=== PATIENT | male | born 1975 | race Hispanic/Latino ===

== ENCOUNTER 2019-10-02 16:50 | Emergency (ER) | payer OTHER ==
--- NOTE | 2019-10-02 17:19 | Event Note ---
ED Screening Note Date of service: 10/02/19 (n) Time: 17:16 ED Screening Note: 44 yo male presents s/p head injury 4 days ago hit his head on the wall, today blurtry vision, pain and dizziness This initial assessment/diagnostic orders/clinical plan/treatment(s) is/are subject to change based on patients health status, clinical progression and re- assessment by fellow clinical providers in the ED. Further treatment and workup at subsequent clinical providers discretion. Patient/guardian urged not to elope from the ED as their condition may be serious if not clinically assessed and managed. Initial orders include: CT scan
--- NOTE | 2019-10-02 18:15 | Cat Scan Report ---
CT head/brain wo con INDICATION / CLINICAL INFORMATION: 44 years Male; head injury/fall. TECHNIQUE: Routine CT head without contrast. All CT scans at this location are performed using CT dos e reduction for ALARA by means of automated exposure control. COMPARISON: None. FINDINGS: BRAIN / INTRACRANIAL CONTENTS: The brain demonstrates appropriate attenuation. The ventricular system is within normal limits in size and configuration. There is no CT evidence of acute intracranial hem orrhage or significant mass effect. ORBITS: No significant abnormality of visualized orbits. SINUSES / MASTOIDS: There is mild mucosal thickening within the visualized ethmoid air cells. CRANIOCERVICAL JUNCTION: No significant abnormality. ADDITIONAL FINDINGS: None. IMPRESSION: 1. There is no CT evidence of acute intracranial process. Signer Name: Manuel Whitney MD Signed: 10/02/2019 6:10 PM Workstation Name: [id number]
--- NOTE | 2019-10-02 18:46 | Emergency Department Report ---
ED General Adult HPI - General Chief complaint: Head Injury Stated complaint: HEAD INJURY Time Seen by Provider: 10/02/19 18:45 Source: patient, RN notes reviewed Mode of arrival: Ambulatory Limitations: No Limitations - History of Present Illness Initial comments: This is a pleasant 44-year-old gentleman. This patient is not known to this provider previously. The patient lives in [place]. He does not have a local primary care doctor. The patient was in his usual state of health 3 days ago, when he slipped and had a mechanical fall, mostly landing on the superior aspect of his back, but also hitting his head. Prior to the fall, he was not having any medical complaints or symptoms. After the fall, he developed a mild headache. He reports that since then, he is felt unwell, mild headache, and dizzy. He is not lost consciousness. He denies vomiting, diaphoresis. He denies midline neck pain. He denies chest pain and abdominal pain and shortness of breath. He describes his dizziness as a sensation of lightheadedness. There is no sensation of heart racing and/or palpitations. He makes no complaints or admission of DVT and/or pulmonary embolism risk factors. -: Sudden Location: head Quality: aching Consistency: intermittent Improves with: none Worsens with: none - Related Data Allergies Allergy/AdvReac Type Severity Reaction Status Date / Time No Known Allergies Allergy Unverified 10/02/19 17:01 ED Review of Systems ROS: Stated complaint: HEAD INJURY Other details as noted in HPI Constitutional: denies: fever Eyes: denies: eye discharge ENT: denies: congestion Cardiovascular: denies: syncope Gastrointestinal: denies: abdominal pain, vomiting Musculoskeletal: myalgia Neurological: weakness. denies: abnormal gait, vertigo Hematological/Lymphatic: denies: easy bleeding ED Past Medical Hx - Past Medical History Previous Medical History?: No - Surgical History Past Surgical History?: No ED Physical Exam - General Limitations: No Limitations General appearance: alert, in no apparent distress - Head Head exam: Present: atraumatic, normocephalic - Eye Eye exam: Present: normal appearance, PERRL, EOMI, other (visual acuity intact to finger counting, color perception, reading at a close distance). Absent: nystagmus - ENT ENT exam: Present: normal exam, normal orophraynx, mucous membranes moist, normal external ear exam (visual acuity intact to finger counting, color perception, reading at a close distance) - Neck Neck exam: Present: normal inspection, full ROM. Absent: tenderness, meningismus - Respiratory Respiratory exam: Present: normal lung sounds bilaterally. Absent: respiratory distress - Cardiovascular Cardiovascular Exam: Present: regular rate, normal rhythm, normal heart sounds. Absent: bradycardia, tachycardia, irregular rhythm, systolic murmur, diastolic murmur, rubs, gallop - GI/Abdominal GI/Abdominal exam: Present: soft, normal bowel sounds. Absent: distended, tenderness, guarding, rebound, rigid, pulsatile mass - Rectal Rectal exam: Present: deferred - Extremities Exam Extremities exam: Present: normal inspection, full ROM, other (2+ pulses noted in the bilateral upper, lower extremities. There is no long bone tenderness. Musculoskeletal compartments are soft. The pelvis is stable.). Absent: pedal edema, joint swelling, calf tenderness - Back Exam Back exam: Present: normal inspection, full ROM. Absent: tenderness, CVA tenderness (R), CVA tenderness (L), paraspinal tenderness, vertebral tenderness - Neurological Exam Neurological exam: Present: alert (there is no past-pointing. There is normal [id number]. There is no pronator drift. There is normal gait. There is normal tandem gait. There is negative Romberg examination.), oriented X3 (the patient is able to add, multiply, recall 3/3 words at 0, and 5 minutes), normal gait, other (there is no facial droop. The tongue is midline. Extraocular movements are intact bilaterally. Patient speaking in full complete sentences. Shoulder shrug is intact bilaterally. Hearing is grossly intact bilaterally. Visual acuity intact to finger counting and color perception at a close distance. 5/5 strength 4 extremities. Sensation intact to light touch in 4 extremities.). Absent: motor sensory deficit - Psychiatric Psychiatric exam: Present: normal affect, normal mood - Skin Skin exam: Present: warm, dry, intact, normal color. Absent: rash ED Course Vital Signs 10/02/19 18:54 Temperature 98.4 F Pulse Rate 74 Respiratory 18 Rate Blood Pressure 134/85 O2 Sat by Pulse 98 Oximetry ED Medical Decision Making - Lab Data Vital Signs 10/02/19 18:54 Temperature 98.4 F Pulse Rate 74 Respiratory 18 Rate Blood Pressure 134/85 O2 Sat by Pulse 98 Oximetry - Radiology Data Radiology results: report reviewed, image reviewed Noncontrast CT scan of the brain is negative for acute disease - Medical Decision Making Differential diagnosis, including but not limited to: Concussion, mild intracranial injury Assessment and plan: 44-year-old gentleman who is approximately 3 days status post mild blunt head injury. He is afebrile with reassuring vital signs and clinically sober. He walks with a steady gait. GCS of 15, NIH score of 0. Patient is clinically sober at this time. The cervical spine is cleared through nexus and greek c spine rule Patient most likely experiencing natural history of concussion. We discussed expectant management for concussion. CT scan brain negative for acute disease. He appears quite comfortable at this time, he is medically suitable for discharge with an outpatient physician. Critical care attestation.: If time is entered above; I have spent that time in minutes in the direct care of this critically ill patient, excluding procedure time. ED Disposition Clinical Impression: Concussion Qualifiers: Encounter type: initial encounter Loss of consciousness presence/duration: without LOC Qualified Code(s): S06.0X0A - Concussion without loss of consciousness, initial encounter Disposition: DC-01 TO HOME OR SELFCARE Is pt being admited?: No Does the pt Need Aspirin: No Condition: Stable Instructions: Minor Head Injury (ED) Additional Instructions: The patient does not have an immediate medical prohibition to returning to work at this time. Patient likely has a concussion, and may experience sensitivity to light, sensitivity to sounds. The patient may return to light duty, however, he should not participate in strenuous physical activity and or contact sports or athletics until cleared to do so by a primary care doctor. Patient may alternate [id number] Motrin and Tylenol as needed for pain. Advance diet as tolerated. Patient may benefit from caffeinated beverages. Follow-up with the primary care doctor within the next 2 weeks. Patient may go to sleep without sleep restriction. Return to emergency room right away with new, worsen ed, different symptoms, or symptoms not present on initial emergency room evaluation. Referrals: [facility] [Provider Group] - as needed
[2019-10-02 18:56] VITALS: BP 134/85
== END 2019-10-02 20:15 | disposition home or self-care (01) ==
LOC: ED 16:50
DX: S06.0X0A Concussion without loss of consciousness, initial encounter (principal); W01.0XXA Fall on same level from slipping, tripping and stumbling without subsequent striking against object, initial encounter; Y93.89 Activity, other specified; Y92.89 Other specified places as the place of occurrence of the external cause; Y99.8 Other external cause status
CPT/HCPCS: 70450